=== PATIENT | female | born 1955 | race Caucasian/White ===

== ENCOUNTER 2016-08-25 11:27 | Observation (INO) | payer OTHER ==
[2016-08-22 08:50] VITALS: BP 141/79
[~2016-08-25] VITALS: Ht 167.6 cm; Wt 85.9 kg
[~2016-08-25 11:27] MED LIST: CEFAZOLIN 1,000 MG ONE; CHOL2000 PO; COLE625T2 PO; CYAN100028 PO; CYCL-259 PO; DEXAMETHASONE 4 MG/ML, 1ML ONE; DILT180C72 PO; ESTR0.5T PO; FENO145T32 PO; FOLI-17 PO; GLYCOPYRROLATE 0.2MG/1ML ONE; Iron PO; METH2.5T PO; MULT-516 PO; NEOSTIGMINE 1 MG/ML, 10ML ONE; ONDANSETRON 2MG/ML, 2ML ONE; OXYC1TAB7 PO; PHENYLEPHRINE 10 MG/ML ONE; PROPOFOL 10 MG/ML, 20ML ONE; ROCURONIUM 10 MG/ML ONE; SERT100T5 PO; SUCCINYLCHOLINE 20 MG/ML, 10ML ONE; TOFA5TAB PO; TRAM50TA2 PO
[2016-08-25] MEDS ORDERED: LACTATED RINGERS 1,000 ML IV SCH (12:12)
[2016-08-25] MEDS ORDERED: MIDAZOLAM 1 MG/ML, 2ML ONE (13:55)
[2016-08-25] MEDS ORDERED: FENTANYL PF 250 MCG/5ML ONE (13:55)
[2016-08-25] MEDS ORDERED: KETAMINE 10 MG/ML, 20ML ONE (13:55)
[2016-08-25] MEDS ORDERED: BUPIVACAINE/PF-EPI 0.5% 1:200K INFIL ONE (16:19)
[2016-08-25] MEDS ORDERED: THROMBIN 5,000 UNIT VIAL TP ONE (16:20)
[2016-08-25] MEDS ORDERED: BACITRACIN 50,000 UNIT IRRIG ONE (16:21)
[2016-08-25] MEDS ORDERED: OXYcodone 5 MG/5 ML ORAL.SOL UDC PO PRN (16:30)
[2016-08-25] MEDS ORDERED: PROMETHAZINE 25 MG/ML, 1ML IV PRN (16:30)
[2016-08-25] MEDS ORDERED: ACETAMINOPHEN 325 MG TABLET PO PRN (16:30)
[2016-08-25] MEDS ORDERED: MEPERIDINE/PF 25MG/0.5ML IVPush PRN (16:30)
[2016-08-25] MEDS: FENTANYL PF 100 MCG/2ML IV PRN ×2 (17:00→17:15)
[2016-08-25] MEDS ORDERED: OXYcodone 5 MG/5 ML ORAL.SOL UDC ONE (17:03)
[2016-08-25] MEDS ORDERED: ACETAMINOPHEN 650 MG/20.3 ML UDC ONE (17:04)
[2016-08-25] MEDS ORDERED: FENTANYL PF 100 MCG/2ML ONE (17:04)
[2016-08-25] MEDS ORDERED: ACETAMINOPHEN 325 MG/10.15 ML UDC ONE (17:05)
[2016-08-25] MEDS ORDERED: HYDROmorphone 1 MG/ML, 1ML ONE (17:25)
[2016-08-25] MEDS: HYDROmorphone 1 MG/ML, 1ML IV PRN ×2 (17:30→17:45)
[2016-08-25] MEDS ORDERED: HYDROmorphone PCA 30 MG/30 ML ONE (18:11)
[2016-08-25] MEDS ORDERED: HYDROmorphone PCA 30 MG/30 ML IV PRN (18:15)
[2016-08-25] MEDS ORDERED: DIAZEPAM 5 MG TABLET PO PRN (19:00)
[2016-08-25] MEDS ORDERED: DIPHENHYDRAMINE 50 MG/ML, 1ML IVPush PRN (19:00)
[2016-08-25] MEDS ORDERED: MAGNESIUM HYDROXIDE 8%, 30ML UDC PO PRN (19:00)
[2016-08-25] MEDS ORDERED: morphine SULFATE 10 MG/ML, 1ML IV PRN (19:00)
[2016-08-25] MEDS ORDERED: DIAZEPAM 5 MG/ML, 2ML IV PRN (19:00)
[2016-08-25] MEDS ORDERED: TIZANIDINE 4MG TABLET PO PRN (19:00)
[2016-08-25] MEDS ORDERED: DIPHENHYDRAMINE 25 MG CAPSULE PO PRN (19:00)
[2016-08-25] MEDS ORDERED: ONDANSETRON 2MG/ML, 2ML IV PRN (19:00)
[2016-08-25] MEDS ORDERED: BISACODYL 10 MG SUPP PR PRN (19:00)
[2016-08-25] MEDS ORDERED: HYDROcodone/APAP 5/325 TABLET PO PRN (19:00)
[2016-08-25 19:57] VITALS: BP 128/75
[2016-08-25] MEDS: COLESEVELAM 625 MG TABLET PO SCH (20:35)
[2016-08-25] MEDS ORDERED: DILTIAZEM CD 180 MG CAP.ER.24H PO SCH (21:00)
[2016-08-25] MEDS ORDERED: SERTRALINE 100MG TABLET PO SCH (21:00)
[2016-08-25] MEDS: NS + 20MEQ KCL 1,000 ML IV SCH (22:06)
[2016-08-25] MEDS: CEFAZOLIN PMX 1GM/50ML 50 ML IVPB SCH (23:56)
[2016-08-26 00:10] VITALS: BP 111/64
[2016-08-26 05:25] VITALS: BP 97/54
[2016-08-26] MEDS: OXYcodone/APAP 5/325MG TABLET PO PRN ×3 (05:34→10:49)
[2016-08-26] MEDS: NS + 20MEQ KCL 1,000 ML IV SCH (07:30)
[2016-08-26 07:57] VITALS: BP 101/51
[2016-08-26] MEDS: CEFAZOLIN PMX 1GM/50ML 50 ML IVPB SCH (07:59)
[2016-08-26] MEDS: COLESEVELAM 625 MG TABLET PO SCH (08:02)
[2016-08-26] MEDS ORDERED: SENNA/DOCUSATE TABLET PO SCH (09:00)
[2016-08-26] MEDS ORDERED: OXYC-302 PO (12:55)
[2016-08-26] MEDS ORDERED: TIZA4TAB9 PO (12:56)
== END 2016-08-26 13:15 | disposition home or self-care (01) ==
LOC: OUT 11:27 → 4NOR 18:32 → OUT 23:12 → 4NOR 23:13 → INTOOBSV 23:13 → DCLOUNGE 08-26 12:49
PROVIDERS: ADMIT Neurological Surgery; ATTEND Neurological Surgery
DX: M48.06 Spinal stenosis, lumbar region (principal); M51.36 Other intervertebral disc degeneration, lumbar region; M51.26 Other intervertebral disc displacement, lumbar region; I10 Essential (primary) hypertension; F41.9 Anxiety disorder, unspecified; G89.29 Other chronic pain; Z98.890 Other specified postprocedural states; Z83.3 Family history of diabetes mellitus; Z82.49 Family history of ischemic heart disease and other diseases of the circulatory system
CPT/HCPCS: 63047; 72100; 96365; 96366; 96375; 97162; 97165; G0378; J0330; J0690; J1100; J1170; J2250; J2370; J2405; J2704; J2710; J3010; J3480; J7120; J3490

== ENCOUNTER → 2019-09-16 | Outpatient (CLI) | payer MEDICARE, OTHER ==
[~2019-09-16] MED LIST changes: -CEFAZOLIN 1,000 MG ONE; +COLE625T12 PO; -COLE625T2 PO; -DEXAMETHASONE 4 MG/ML, 1ML ONE; -GLYCOPYRROLATE 0.2MG/1ML ONE; -NEOSTIGMINE 1 MG/ML, 10ML ONE; -ONDANSETRON 2MG/ML, 2ML ONE; +OXYC-302 PO; -PHENYLEPHRINE 10 MG/ML ONE; -PROPOFOL 10 MG/ML, 20ML ONE; -ROCURONIUM 10 MG/ML ONE; +SERT100T32 PO; -SERT100T5 PO; -SUCCINYLCHOLINE 20 MG/ML, 10ML ONE; +TIZA4TAB9 PO
== END | disposition home or self-care (01) ==
LOC: CFH 12:01
PROVIDERS: ATTEND Orthopaedic Surgery
DX: M19.072 Primary osteoarthritis, left ankle and foot (principal); M06.872 Other specified rheumatoid arthritis, left ankle and foot; M25.572 Pain in left ankle and joints of left foot

== ENCOUNTER → 2020-05-04 | Outpatient (CLI) | payer MEDICARE, OTHER ==
[~2020-05-04] MED LIST changes: -CYCL-259 PO; +CYCL10TA2 PO; -FOLI-17 PO; +FOLI1TAB32 PO; -OXYC-302 PO; +OXYC1TAB14 PO
== END | disposition home or self-care (01) ==
LOC: CFH 13:30
PROVIDERS: ATTEND Orthopaedic Surgery
DX: S92.335A Nondisplaced fracture of third metatarsal bone, left foot, initial encounter for closed fracture (principal); S92.325A Nondisplaced fracture of second metatarsal bone, left foot, initial encounter for closed fracture; M96.0 Pseudarthrosis after fusion or arthrodesis; M19.072 Primary osteoarthritis, left ankle and foot; X58.XXXA Exposure to other specified factors, initial encounter; Y93.89 Activity, other specified; Y92.89 Other specified places as the place of occurrence of the external cause; Y99.8 Other external cause status

== ENCOUNTER 2020-09-08 16:45 | Emergency (ER) | payer MEDICARE, OTHER ==
[~2020-09-08] VITALS: Ht 167.6 cm; Wt 82.0 kg
--- NOTE | 2020-09-08 17:06 | NUR ---
FIRST CONTACT WITH PT: LEFT ANKLE S/P SURGERY, INFECTED DRAINAGE, SWOLLEN, EXTERNAL FIXATORY IN PLACE. PT TO BED AND POSTIONED TO COMFORT. ATTACHED TO BRONWYN. VSS. NAD.AWAITNG ORDERS. +PEDAL PULSE.
--- NOTE | 2020-09-08 17:12 | NUR ---
DR. MEDINA TO BEDSIDE FOR EVALUATION
[2020-09-08 18:18] VITALS: BP 121/44
[2020-09-08 18:23] LABS: MEAN CORPUSCULAR HEMOGLOBIN 30.6 pg (27.0-34.8); MEAN CORPUSCULAR HGB CONC 33.8 g/dL (32.4-35.8); MEAN PLATELET VOLUME 7.2 fL (7.4-10.4); PLATELET COUNT 391 x10^3/uL (130-400); RED BLOOD COUNT 3.44 x10^6/uL (3.82-5.3); RED CELL DISTRIBUTION WIDTH 17.4 % (9.6-15.2)
[2020-09-08 18:36] LABS: ALBUMIN 3.2 g/dL (3.4-5.0); ANION GAP 3 mmol/L (5-15); CALCIUM 11.1 mg/dL (8.5-10.1); CHLORIDE 106 mmol/L (98-107)
--- NOTE | 2020-09-08 18:40 | NUR ---
PT TO SCARLETSOUND
--- NOTE | 2020-09-08 18:45 | NUR ---
REPORT TO CATY
[2020-09-08 18:46] LABS: ALANINE AMINOTRANSFERASE 23 U/L (12-78); ALKALINE PHOSPHATASE 123 U/L (45-117); BILIRUBIN,TOTAL 0.2 mg/dL (0.2-1.0); CREATININE 1.27 mg/dL (0.55-1.02); TOTAL PROTEIN 7.2 g/dL (6.4-8.2)
[2020-09-08 18:56] LABS: ANISOCYTOSIS 1+; BAND#(MANUAL) 0.23 x10^3/uL; BANDS%(MANUAL) 2 % (0-7); LYMPHS% (MANUAL) 15 % (22-44); METAMYELOCYTES# (MANUAL) 0.11 x10^3/uL (0-0); METAMYELOCYTES% (MANUAL) 1 % (0-1); MONOS#(MANUAL) 0.34 x10^3/uL (0.3-2.7); MONOS% (MANUAL) 3 % (2-9); MYELOCYTES# (MANUAL) 0.23 x10^3/uL (0-0); MYELOCYTES% (MANUAL) 2 % (0-0); POLYCHROMASIA 1+; REACTIVE LYMPHS # (MANUAL) 0.11 x10^3/uL (0-0); REACTIVE LYMPHS % (MANUAL) 1 % (0-0); SEG#(MANUAL) 8.59 x10^3/uL (1.8-6.8); SEGS% (MANUAL) 76 % (42-75)
[2020-09-08 18:57] LABS: <PLATELET ESTIMATE> ADEQUATE; <PLT MORPHOLOGY> NORMAL PLT MORPH
[2020-09-08 18:59] LABS: HCT (SEDRATE) 31.1 % (34.6-47.8)
--- NOTE | 2020-09-08 19:01 | NUR ---
ORTHOPEDIC SURGEON PAGED FOR PT.
--- NOTE | 2020-09-08 19:31 | NUR ---
F/U AND D/C INSTRUCTIONS GIVEN TO PT AND SHE V/U. PT ABLE TO MOBILIZE HERSELF TO THE WHEELCHAIR AND WHEELED TO THE DISCHARGE DESK, AND AT HER SIDE TO ASSIST INTO CAR. PT D/C'D WITHOUT INCIDENT.
== END 2020-09-08 19:33 | disposition home or self-care (01) ==
LOC: ED 16:59
DX: L03.116 Cellulitis of left lower limb (principal); I10 Essential (primary) hypertension; E78.5 Hyperlipidemia, unspecified; G43.909 Migraine, unspecified, not intractable, without status migrainosus; M06.9 Rheumatoid arthritis, unspecified
CPT/HCPCS: 36415; 80053; 83605; 85025; 85651; 86140; 99284